=== PATIENT | female | born 1990 | race Caucasian/White ===

== ENCOUNTER 2020-05-10 11:01 | Emergency (ER) | payer BC, MEDICAID ==
[~2020-05-10] VITALS: Ht 167.6 cm; Wt 90.0 kg
[2020-05-10 11:15] VITALS: BP 132/76
--- NOTE | 2020-05-10 11:59 | PHYS DOC ---
Past History Past Medical History: No Pertinent History (SARINA LAMB APRN) Past Surgical History: (SARINA LAMB APRN) Alcohol Use: None (SARINA LAMB APRN) General Adult EDM: Chief Complaint: ABDOMINAL PAIN IN HPI: HPI: Patient is a 29-year-old female who presents with right sided abdominal pain. P atient states "I feel like somethings there and it feels like a stretching feeling". Patient reports pain for the last 5 days with some nausea. Patient states that she is 8 weeks and did have some light bleeding for a few days at the beginning of April. Patient reports that she has had blood work since but has not seen her [employer] MAGISTRATE. Denies vomiting, fever. Recent illness. Denies dysuria or frequency. Patient reports she has been taking Tylenol for the pain at home with little relief. "The only thing that makes it feel better is if I push in on my stomach". Patient reports that she had a colonoscopy done a week ago and had cancerous polyps removed. Denies any other health history. (SARINA LAMB APRN) Review of Systems: Review of Systems: Constitutional: Denies fever or chills Eyes: Denies change in visual acuity HENT: Denies nasal congestion or sore throat Respiratory: Denies cough or shortness of breath Cardiovascular: Denies chest pain or edema GI: Reports right-sided abdominal pain, nausea, denies vomiting, bloody stools or diarrhea : Denies dysuria Musculoskeletal: Denies back pain or joint pain Integument: Denies rash Neurologic: Denies headache, focal weakness or sensory changes Endocrine: Denies polyuria or polydipsia Lymphatic: Denies swollen glands Psychiatric: Denies depression or anxiety (SARIAN LAMB APRN) Allergies: Allergies: Allergies Coded Allergies Type Severity Reaction Last Updated Verified No Known Drug Allergies 05/10/20 No (SARINA LAMB APRN) Physical Exam: PE: Constitutional: Well developed, well nourished, no acute distress, non-toxic appearance. [] HENT: Normocephalic, atraumatic, bilateral external ears normal, oropharynx moist, no oral exudates, nose normal. [] Eyes: PERRLA, EOMI, conjunctiva normal, no discharge. [] Neck: Normal range of motion, no tenderness, supple, no stridor. [] Cardiovascular:Heart rate regular rhythm, no murmur [] Lungs & Thorax: Bilateral breath sounds clear to auscultation [] Abdomen: Bowel sounds normal, soft, no tenderness, no masses, no pulsatile masses. [] Skin: Warm, dry, no erythema, no rash. [] Back: No tenderness, no CVA tenderness. [] Extremities: No tenderness, no cyanosis, no clubbing, ROM intact, no edema. [] Neurologic: Alert and oriented X 3, normal motor function, normal sensory function, no focal deficits noted. [] Psychologic: Affect normal, judgement normal, mood normal. [] (SARINA LAMB APRN) Current Patient Data: Labs: Laboratory Tests Test 05/10/20 11:34 POC Urine HCG, Qualitative hcg positive (Negative) Vital Signs: Vital Signs Date Time Temp Pulse Resp B/P (MAP) Pulse Ox O2 Delivery O2 Flow Rate FiO2 05/10/20 11:15 98.1 91 16 132/76 (94) 97 Room Air (SARINA LAMB APRN) EKG: EKG: [] (SARINA LAMB APRN) Radiology/Procedures: Radiology/Procedures: [] (SARINA LAMB APRN) Heart Score: Risk Factors: Risk Factors: DM, Current or recent (<one month) smoker, HTN, HLP, family histo ry of CAD, obesity. Risk Scores: Score 0 - 3: 2.5% MACE over next 6 weeks - Discharge Home Score 4 - 6: 20.3% MACE over next 6 weeks - Admit for Clinical Observation Score 7 - 10: 72.7% MACE over next 6 weeks - Early Invasive Strategies (SARINA LAMB APRN) Course & Med Decision Making: Course & Med Decision Making Pertinent Labs and Imaging studies reviewed. (See chart for details) []Patient is a 29-year-old female who presents with right sided abdominal pain. Patient states "I feel like somethings there and it feels like a stretching feeling". Patient reports pain for the last 5 days with some nausea. Patient states that she is 8 weeks and did have some light bleeding for a few days at the beginning of April. Patient reports that she has had blood work since but has not seen her [employer] [employer] MAGISTRATE. Denies vomiting, fever. Recent illness. Denies dysuria or frequency. Patient reports she has been taking Tylenol for the pain at home with little relief. "The only thing that makes it feel better is if I push in on my stomach". Patient reports that she had a colonoscopy done a week ago and had cancerous polyps removed. Denies any other health history. Ultrasound of abdomen ordered to rule out appendectomy or Coly. Labs and UA rule out infection. Labs are unremarkable. UA negative for infection. Patient is upset and requesting to leave AMA. Patient received a phone call from her shipping weigher who said he could see her today if she was able to come in right now. spoke with patient who decided to sign paperwork to leave AMA and was informed to come back to the emergency room if she had any concerns or worsening symptoms. (SARINA LAMB APRN) Course & Med Decision Making This is a pleasant 29-year-old female who presented to our emergency department with abdominal pain and . We had ordered ultrasound of the gallbladder appendix and an OB ultrasound. Lab work was obtained which was unremarkable. Radiology reports had not been read yet. We were considering the diagnosis of appendicitis in and our plan at that time was to follow-up on the imaging and then likely to transfer to another hospital for an MRI of her appendix. I explained this to the patient in person and examined her in person. She has some tenderness in the right lower quadrant. I explained the risks and benefits to the procedures were doing and the need for higher level of care. My plan was to transfer the patient by ambulance likely depending on the results of her ultrasounds. The patient understood this and was able to repeated in plain language. She would like to leave [employer]. AMA I informed the patient of their right to a medical screening exam and any treatment and/or stabilization that may be necessary regardless of their ability to pay. The patient appears to have intact insight, judgment, and reason. In my opinion, this patient has the capacity to make decisions. The patient presented with rlq abd pain and I am concerned that this could be appendicitis, cholecystitis, tubal . My initial plan prior to the pt expressing the d esire to leave was to wait on imaging results and likely transfer to another facility for MRI of the appendix. I explained the risk of and disability to the patient in plain language which they were able to demonstrate in their own words verbal understanding. I discussed the limitations of the workup thus far included but were not limited to imaging results and need for probable MRI of her appendix. The pt has verbalized understanding of my concerns. I offered alternatives to the therapy including close follow-up. The patient is able to get into an appointment with her OB today. I explained to her that the OB likely will end up sending her back to the emergency department because of her abdominal pain as the pain is not in the uterine region of her abdomen. I recommended the pt follow up with OB today in clinic right now. I explained that at any time if the patient changed their mind, we are always open and would be happy to have them back. The patient refused further care and then left against medical advice. Physical exam: Constitutional no acute distress, resting comfortably in examination room HEENT. Head normocephalic and atraumatic, pupils equal round and reactive to light, extraocular movements intact, no scleral icterus or erythema, mucous m embranes moist CV: Palpable pulse with a nl rate and regular rhythm. Respiratory: Not in any respiratory distress breathing comfortably Abdomen: Soft tender to palpation in the right lower quadrant. Negative Buchanan sign. Nondistended. No rebound tenderness or guarding. extremities: NVI, nontender with nl rom of the joints. no deformities. Skin: Normal color. no rash. Psych: Makes eye contact, affect congruent with mood Neuro exam: Alert, speech is normal. Normal cranial nerves, no focal neurologic deficits. Smile symmetric. nl motor. nl sensation. (MEG KINCAID MD) [place] Disclaimer: Charlie Disclaimer: This electronic medical record was generated, in whole or in part, using a voice recognition dictation system. (SARINA LAMB APRN) Departure Departure: Impression: Primary Impression: Abdominal pain Qualified Codes: R10.11 - Right upper quadrant pain Disposition: 07 AMA/ELOPED/LWBS Condition: GUARDED Referrals: PCP,NO (PCP) Patient Instructions: Abdominal Pain Additional Instructions: EMERGENCY DEPARTMENT GENERAL DISCHARGE INSTRUCTIONS Thank you for coming to [facility] (ED) today and trusting us with you care. We trust that you had a positivie experience in our Emergency Department. If you wish to speak to the department management, you may call the director at [phone]. YOUR FOLLOW UP INSTRUCTIONS ARE FOLLOWS: 1. Do you have a private Doctor? If you do not have a private doctor, please ask for a resource list of physicians or clinics that may be able to assist you with follow up care. 2. The Emergency Physician has interpreted your x-rays. The X-Ray specialist will also review them. If there is a change in the findings, you will be notified in 48 hours when at all possible. 3. A lab test or culture has been done, your results will be reviewed and you will be notified if you need a change in treatment. ADDITIONAL INSTRUCTIONS AND INFORMATION: 1. Your care today has been supervised by a physician who is specially trained in emergency care. Many problems require more than one evaluation for a complete diagnosis and treatment. We recommend that you schedule your follow up appointment as recommended to ensure complete treatment of you illness or injury. If you are unable to obtain follow up care and continue to have a problem, or if your condition worsens, we recommend that you return to the ED. 2. We are not able to safely determine your condition over the phone nor are we able to give sound medical advice over the phone. For these safety reasons, if you call for medical advice we will ask you to come to the ED for further evaluation. 3. If you have any questions regarding these discharge instructions please call the ED at [phone]. SAFETY INFORMATION: In the interest of safety, wellness, and injury prevention; we encourage you to wear your sealbelt, if you smoke; quite smoking, and we encourage family to use a protective helmet for bicycling and other sporting events that present an increased risk for head injury. IF YOUR SYMPTOMS WORSEN OR NEW SYMPTOMS DEVELOP, OR YOU HAVE CONCERNS ABOUT YOUR CONDITION; OR IF YOUR CONDITION WORSENS WHILE YOU ARE WAITING FOR YOUR FOLLOW UP APPOINTMENT; EITHER CONTACT YOUR PRIMARY CARE DOCTOR, THE PHYSICIAN WHOSE NAME AND NUMBER YOU WERE GIVEN, OR RETURN TO THE ED IMMEDIATELY. SARINA LAMB APRN May 10, 2020 11:59 MEG KINCAID MD May 10, 2020 13:30
[2020-05-10 12:28] LABS: BASO # 0.1 x10^3/uL (0.0-0.2); BASO % 1 % (0-3); EOS # 0.1 x10^3/uL (0.0-0.7); EOS % 1 % (0-3); HEMATOCRIT 44.1 % (36.0-47.0); HEMOGLOBIN 14.6 g/dL (12.0-15.5); LYMPH # 2.2 x10^3/uL (1.0-4.8); LYMPH % 22 % (24-48); MEAN CORPUSCULAR HEMOGLOBIN 31 pg (25-35); MEAN CORPUSCULAR HGB CONC 33 g/dL (31-37); MEAN CORPUSCULAR VOLUME 93 fL (79-100); MONO # 0.7 x10^3/uL (0.0-1.1); MONO % 7 % (0-9); NEUT # 6.8 x10^3uL (1.8-7.7); NEUT % 69 % (31-73); PLATELET COUNT 236 x10^3/uL (140-400); RED BLOOD COUNT 4.74 x10^6/uL (3.50-5.40); RED CELL DISTRIBUTION WIDTH 13.4 % (11.5-14.5); WHITE BLOOD COUNT 9.9 x10^3/uL (4.0-11.0)
[2020-05-10 12:41] LABS: BILIRUBIN,URINE NEG (NEG); CLARITY,URINE CLEAR; COLOR,URINE YELLOW; GLUCOSE,URINE NEG (NEG)
[2020-05-10 12:42] LABS: BACTERIA,URINE 0 /HPF (0-FEW); NITRITE,URINE NEG (NEG); RBC,URINE OCC /HPF (0-2); UROBILINOGEN,URINE 0.2 mg/dL (0.2 mg/dL); WBC,URINE OCC /HPF (0-4)
[2020-05-10 12:42] LABS: CREATININE 0.6 mg/dL (0.6-1.0); GFR 119.9; POTASSIUM 3.8 mmol/L (3.5-5.1)
[2020-05-10 12:44] LABS: SQUAMOUS EPITHELIAL CELL,UR OCC /LPF
[2020-05-10 12:48] LABS: ALBUMIN 3.8 g/dL (3.4-5.0); TOTAL BILIRUBIN 0.1 mg/dL (0.2-1.0); TOTAL PROTEIN 7.6 g/dL (6.4-8.2)
--- NOTE | 2020-05-10 13:29 | RAD ---
US ABDOMEN LTD, US ABDOMEN LTD, US OB <14 WKS +TV 05/10/2020 12:09 PM INDICATION: Abdominal pain in . COMPARISON: None available. TECHNIQUE: Limited sonographic evaluation of the right lower quadrant was performed utilizing graysc pippa and color Doppler. Sonographic evaluation the pelvis was performed utilizing grayscale, color Dop pler and spectral waveform analysis. FINDINGS: The uterus measures 8.9 x 5.3 x 5.6 cm. A single intrauterine gestational sac is identified with yolk sac. Mean sac diameter measures 1.09 cm compatible gestational age of 5 weeks 6 days. pole is not visualized. Sonographic EDC is 01/04/2021. Right ovary measures 3.9 x 2.1 x 2.4 cm. There is a simple cyst measuring 1.8 x 1.5 x 1.7 cm. Left ov felix measures 2.6 x 2.7 x 2.6 cm and normal in appearance. Arterial and venous waveform are identified bilaterally at the time of imaging. No significant free fluid identified within the cul-de-sac. The appendix is not definitively visualized in the right lower quadrant. No free fluid or cystic or s olid abdominal mass. IMPRESSION: There is a single gestational sac with yolk sac with sac diameter suggestive of a gestational age of 5 weeks 6 days. No heart tones or pole visualized. Findings most suggest early , although ectopic failure remain a differential consideration. Short-term follow- up pelvic ultrasound and beta-hCG could be of benefit for further evaluation. Appendix is not definitively visualized. Electronically signed by: Linda Echevarria MD (05/10/2020 1:26 PM) [id number]
== END 2020-05-10 13:25 ==
LOC: ER 11:01
DX: O26.891 Other specified pregnancy related conditions, first trimester (principal); R10.11 Right upper quadrant pain; Z3A.01 Less than 8 weeks gestation of pregnancy; Z98.890 Other specified postprocedural states
CPT/HCPCS: 36415; 76705; 76801; 76817; 80053; 81001; 81025; 83690; 84702; 85025; 93975; 99284; 99285